=== PATIENT | female | born 1940 | race Caucasian/White ===

== ENCOUNTER 2018-05-10 12:12 | Emergency (ER) | payer OTHER ==
[~2018-05-10] VITALS: Ht 172.7 cm; Wt 99.8 kg
--- NOTE | 2018-05-10 12:57 | ED GENERAL ADULT ---
History of Present Illness General Chief Complaint: Abdominal Pain/Flank Pain Stated Complaint: FEVER/ABD PAIN Source: patient, family Exam Limitations: no limitations Vital Signs & Intake/Output Vital Signs & Intake/Output Vital Signs Date Time Temp Pulse Resp B/P B/P Pulse O2 O2 Flow FiO2 Mean Ox Delivery Rate 05/10 1653 97.0 82 18 173/81 99 Room Air Room Air 05/10 1321 97 Room Air Room Air 05/10 1238 97.2 74 20 146/76 97 Room Air Allergies Coded Allergies: Penicillins (UNKNOWN 05/10/18) Reconcile Medications Aspirin (Aspirin*) 81 MG TAB.CHEW 1 TAB PO DAILY HEART HEALTH (Reported) Cholecalciferol (Vitamin D3) (Vitamin D) 1,000 UNIT TABLET 1 TAB PO DAILY VITAMIN SUPPORT (Reported) Melatonin 10 MG TABLET 1 TAB PO QPM SLEEP (Reported) Metoprolol Tartrate 25 MG TABLET 1.5 TAB PO DAILY HEART (Reported) Multivitamin (Daily Multiple Vitamin) 1 EACH TABLET 1 TAB PO DAILY VITAMIN SUPPORT (Reported) Sigurd-3 Fatty Acids/Fish Oil (Fish Oil 1,000 MG Capsule) 340 MG-1,000 MG CAPSULE 1 CAP PO BID SUPPLEMENT (Reported) Rosuvastatin Calcium (Crestor) 20 MG TABLET 1 TAB PO DAILY CHOLESTEROL ( Reported) Ubidecarenone (Co Q-10) (Unknown Strength) CAPSULE (Unknown Dose) PO BID SUPPLEMENT (Reported) Triage Note: PT TO ED C/O ABD CRAMPING X A FEW MONTHS. STATES FEVER LAST NIGHT. C/O DIARRHEA AND CHILLS. DENIES N/V. Triage Nurses Notes Reviewed? yes HPI: Patient is a 77-year-old female with past medical history as outlined below, with no past surgical history other than a bladder sling performed transvaginally, who presents today with 2 months of worsening diarrhea and abdominal cramping. Became acutely worse in the last several days causing her to be unable to wait for a PCP visit. Upon my initial encounter the patient is generally well-appearing and in no acute distress when at rest and stationary, but she states that during the drive in, speed bumps very painful and even standing causes her distress. Past History Travel History Traveled to [place] past 21 day No Medical History Any Pertinent Medical History? see below for history Cardiovascular: myocardial infarction Surgical History Surgical History: non-contributory Psychosocial History What is your primary language Upper Sorbian Tobacco Use: Quit >30 days ago ETOH Use: denies use Illicit Drug Use: denies illicit drug use Family History Hx Contributory? No Review of Systems Review of Systems Constitutional: Reports: see HPI. EENTM: Reports: no symptoms. Respiratory: Reports: no symptoms. Cardiovascular: Reports: no symptoms. GI: Reports: see HPI, abdominal pain, bloating, diarrhea, distention, bloody stool, changes in stool. Denies: constipation, bowel incontinence, nausea, vomiting. Genitourinary: Denies: discharge, dysuria, frequency, hematuria, hesitation. Musculoskeletal: Reports: no symptoms. Skin: Reports: no symptoms. Neurological/Psychological: Reports: no symptoms. Hematologic/Endocrine: Reports: no symptoms. Immunologic/Allergic: Reports: no symptoms. All Other Systems: Reviewed and Negative Physical Exam Physical Exam General Appearance: well developed/nourished, no apparent distress, alert, awake , comfortable Comments: HEENT: Inspection of the head reveals a normocephalic cranium with no signs of trauma. Ophtho: Extraocular muscles are intact and pupils are equal and reactive to light bilaterally with no afferent pupillary defect. The sclera are noninjected , and there is no obvious discharge. Neck: The trachea is midline, there is no obvious asymmetry or mass over the thyroid, and there is no midline cervical spine tenderness Respiratory: The lungs are clear and equal to auscultation bilaterally without wheezes, rales, or rhonchi. The patient exhibits no signs of labored breathing. Cardiac: Regular rhythm and non-tachycardic without appreciable murmurs on auscultation. No obvious JVD. GI: Examination of the abdomen reveals generalized abdominal discomfort without specific focality, worse in the bilateral lower quadrants and epigastrium and in the upper quadrants There is negative Oliver's sign, negative McBurney's point tenderness, negative Mychal sign, negative Mobley-Humphries sign, and no signs of peritonitis whatsoever on percussion or deep palpation. The skin is intact with no sign of trauma or infection. : Deferred Neuro: The patient is oriented to person, place, time, and situation, with no obvious focal motor deficits. There were no sensory deficits, and the patient exhibit purposeful movement of all 4 extremities. Cranial nerves II through XII are intact, and gait is normal. Behavioral: Calm and cooperative Dermatologic: Dermatologic examination reveals no diffuse rashes or exanthems, no petechiae, no ecchymoses, and no other signs of erythema or infection. Core Measures ACS in differential dx? No CVA/TIA Diagnosis: No Sepsis Present: No Sepsis Focused Exam Completed? No Progress Differential Diagnoses I considered the following diagnoses in my evaluation of the patient: Inflammatory bowel disease, ulcerative colitis, peritonitis, appendicitis, ischemic colitis, among multiple other possibilities Plan of Care: Orders Procedure Date/time Status URINALYSIS 05/10 1252 Complete LIPASE 05/10 1252 Complete COMPREHENSIVE METABOLIC PANEL 05/10 1252 Complete CBC WITHOUT DIFFERENTIAL 05/10 125 Complete Laboratory Tests 05/10/18 1415: CBC w Diff NO MAN DIFF REQ, RBC 4.10 L, MCV 89.9, MCH 30.0, MCHC 33.3, RDW 13.6 , MPV 8.3, Gran % 74.5, Lymphocytes % 18.0 L, Monocytes % 5.1, Eosinophils % 1.5, Basophils % 0.9, Absolute Granulocytes 5.6, Absolute Lymphocytes 1.4, Absolute Monocytes 0.4, Absolute Eosinophils 0.1, Absolute Basophils 0.1 05/10/18 1300: Urinalysis LIGHT H, Urine Color YEL, Urine Clarity CLEAR, Urine pH 6.0, Ur Specific [place] 1.015, Urine Protein NEG, Urine Ketones NEG, Urine Nitrite NEG, Urine Bilirubin NEG, Urine Urobilinogen 0.2, Ur Leukocyte Esterase TRACE H, Ur Microscopic SEDIMENT EXAMINED, Urine RBC RARE, Urine WBC RARE, Ur Epithelial Cells OCCAS, Urine Bacteria RARE H, Urine Hemoglobin TRACE-INTACT, Urine Glucose NEG 05/10/18 1215: Anion Gap 9, Estimated GFR > 60, BUN/Creatinine Ratio 20.0, Glucose 96, Calcium 9.1, Total Bilirubin 0.6, AST 18, ALT 27, Alkaline Phosphatase 66, Total Protein 6.5, Albumin 3.8, Globulin 2.7, Albumin/Globulin Ratio 1.4, Lipase 65 Initial ED EKG: none Comments: Patient presents with abdominal pain, no recent colonoscopies. Recently had a negative ColoGuard, but has noticed some dark stools and even some bloody stools over recent months. CT scan showed diverticulitis which was uncomplicated as documented below. This correlates and makes sense with her symptoms, so I feel it is reasonable for her to be treated with ciprofloxacin and metronidazole and discharged with plans to follow-up with her PCP and regulatory administrator. She will return to the emergency department for any development of fever, nausea, vomiting, or other worsening in her condition. PATIENT: PATRICE KUNZ PRESENT AGE: 77 PATIENT ACCOUNT NO: [id number] : 42 LOCATION: [facility] ORDERING PHYSICIAN: Martin Kunz DO SERVICE DATE: 05/10/18 EXAM TYPE: CAT - CT ABD & PELVIS W IV CONTRAST EXAMINATION: CT ABDOMEN AND PELVIS WITH CONTRAST CLINICAL INFORMATION: Inflammatory bowel disease versus other pathology with abdominal pain and diarrhea. COMPARISON: None TECHNIQUE: Multidetector volumetric imaging was performed of the abdomen and pelvis following IV administration of 95 mL of Optiray 320 intravenous contrast. Sagittal and coronal reformatted images were obtained on the technologist's workstation. DLP: 929.71 mGy-cm FINDINGS: LUNG BASES: The visualized lung bases are unremarkable. LIVER, GALLBLADDER, AND BILIARY TREE: The liver is normal in size, shape, and attenuation. No focal hepatic lesion or biliary ductal dilatation is present. The gallbladder is unremarkable with no evidence of radiopaque gallstones, gallbladder wall thickening, or obvious pericholecystic inflammatory changes. PANCREAS: Unremarkable. SPLEEN: Unremarkable. ADRENAL GLANDS: Unremarkable. KIDNEYS AND URETERS: The kidneys are normal in size, shape, and attenuation. No hydronephrosis, hydroureter, or calculi seen. No perinephric stranding. BLADDER: Unremarkable. GASTROINTESTINAL TRACT: In the distal sigmoid there is an abnormal phlegmonous area consistent with diverticulitis. Inflammatory changes extend out into the perisigmoid fat no free air or associated fluid collection is seen. Scattered diverticula are seen elsewhere. The small bowel is unremarkable. The appendix appears normal. ABDOMINAL WALL: No significant hernia is appreciated. A tiny left direct inguinal hernia seen containing only fat. Small periumbilical hernia seen containing only fat. LYMPH NODES: Normal. VASCULAR: Unremarkable. PELVIC VISCERA: Patient appears to be status post hysterectomy and bilateral salpingo-oophorectomy. OSSEOUS STRUCTURES: Marked degenerative changes present throughout the lumbosacral spine. No bony destructive lesions are seen. IMPRESSION: Acute uncomplicated sigmoid diverticulitis. No associated fluid collections are seen that would require drainage. DICTATED BY: Blaine Tariq MD DATE/TIME DICTATED:05/10/181514 LINE SERVICER:GUSTAVO DATE/TIME TRANSCRIBED:05/10/181514 CONFIDENTIAL, DO NOT COPY WITHOUT APPROPRIATE AUTHORIZATION. <Electronically signed in Other Vendor System> SIGNED BY: Blaine Tariq MD 05/10/18 1611 Departure Departure Time of Disposition: 1653 Disposition: HOME OR SELF CARE Condition: Stable Clinical Impression Primary Impression: Diverticulitis large intestine Qualifiers: Diverticulitis bleeding: unspecified bleeding status Diverticulitis complication: without perforation or abscess Qualified Code: K57.32 - Diverticulitis of large intestine without perforation or abscess without bleeding Referrals: Beverly MCGOWAN,Dev Jones (PCP/Family) Additional Instructions: Please take the antibiotics we prescribed and follow up with your primary physician for reassessment, and with our regulatory administrator at [phone]. Return to the emergency department for any worsening abdominal pain, fever, or other concerns. Departure Forms: Customer Survey General Discharge Information Prescriptions: Current Visit Scripts Ciprofloxacin HCl (Cipro) 1 TAB PO BID #30 TAB Metronidazole (Flagyl) 1 TAB PO Q8 #40 TAB Critical Care Note Critical Care Note Critical Care Time: non-applicable
[2018-05-10] MEDS ORDERED: FISH OIL 1,0001 EACH PO (14:16)
[2018-05-10] MEDS ORDERED: ASPIRIN81 M4 PO (14:17)
[2018-05-10] MEDS ORDERED: METOPROLOL TART25 M1 PO (14:17)
[2018-05-10] MEDS ORDERED: DAILY MULTIPLE1 EACH PO (14:17)
[2018-05-10] MEDS ORDERED: VITAMIN D1000 UNIT PO (14:17)
[2018-05-10] MEDS ORDERED: MELATONIN10 M2 PO (14:18)
[2018-05-10] MEDS ORDERED: CO Q-10100 MG PO (14:18)
[2018-05-10] MEDS ORDERED: CRESTOR20 M2 PO (14:19)
[2018-05-10 14:30] LABS: ABSOLUTE BASOPHIL COUNT 0.1 /CUMM (0.0-0.2); ABSOLUTE EOSINOPHIL COUNT 0.1 /CUMM (0.0-0.7); ABSOLUTE GRANULOCYTE CT 5.6 /CUMM (1.4-6.5); ABSOLUTE LYMPH COUNT 1.4 /CUMM (1.2-3.4); ABSOLUTE MONOCYTE COUNT 0.4 /CUMM (0.10-0.60); BASOPHIL % 0.9 % (0.0-2.0); EOSINOPHIL % 1.5 % (0-5); GRANULOCYTE % 74.5 % (42.2-75.2); HEMATOCRIT 36.9 % (37-47); MEAN CORPUSCULAR HGB CONC 33.3 G/DL (33.0-37.0); MEAN CORPUSCULAR VOLUME 89.9 FL (81.0-99.0); MEAN PLATELET VOLUME 8.3 FL (7.4-10.4); PLATELET COUNT 164 /CUMM (130-400); RBC DISTRIBUTION WIDTH 13.6 % (11.5-14.5); WHITE BLOOD CELL COUNT 7.6 /CUMM (4.8-10.8)
--- NOTE | 2018-05-10 16:11 | CT SCAN REPORT ---
EXAMINATION: CT ABDOMEN AND PELVIS WITH CONTRAST CLINICAL INFORMATION: Inflammatory bowel disease versus other pathology with abdominal pain and diarrhea. COMPARISON: None TECHNIQUE: Multidetector volumetric imaging was performed of the abdomen and pelvis following IV administration of 95 mL of Optiray 320 intravenous contrast. Sagittal and coronal reformatted images were obtained on the technologist's workstation. DLP: 929.71 mGy-cm FINDINGS: LUNG BASES: The visualized lung bases are unremarkable. LIVER, GALLBLADDER, AND BILIARY TREE: The liver is normal in size, shape, and attenuation. No focal hepatic lesion or biliary ductal dilatation is present. The gallbladder is unremarkable with no evidence of radiopaque gallstones, gallbladder wall thickening, or obvious pericholecystic inflammatory changes. PANCREAS: Unremarkable. SPLEEN: Unremarkable. ADRENAL GLANDS: Unremarkable. KIDNEYS AND URETERS: The kidneys are normal in size, shape, and attenuation. No hydronephrosis, hydroureter, or calculi seen. No perinephric stranding. BLADDER: Unremarkable. GASTROINTESTINAL TRACT: In the distal sigmoid there is an abnormal phlegmonous area consistent with diverticulitis. Inflammatory changes extend out into the perisigmoid fat no free air or associated fluid collection is seen. Scattered diverticula are seen elsewhere. The small bowel is unremarkable. The appendix appears normal. ABDOMINAL WALL: No significant hernia is appreciated. A tiny left direct inguinal hernia seen containing only fat. Small periumbilical hernia seen containing only fat. LYMPH NODES: Normal. VASCULAR: Unremarkable. PELVIC VISCERA: Patient appears to be status post hysterectomy and bilateral salpingo-oophorectomy. OSSEOUS STRUCTURES: Marked degenerative changes present throughout the lumbosacral spine. No bony destructive lesions are seen. IMPRESSION: Acute uncomplicated sigmoid diverticulitis. No associated fluid collections are seen that would require drainage.
[2018-05-10 16:53] VITALS: BP 173/81
[2018-05-10] MEDS ORDERED: CIPRO500 M1 PO (17:39)
[2018-05-10] MEDS ORDERED: FLAGYL500 MG PO (17:39)
== END 2018-05-10 17:45 ==
LOC: ERH 12:12
PROVIDERS: Student in an Organized Health Care Education/Training Program
DX: K57.32 Diverticulitis of large intestine without perforation or abscess without bleeding (principal); R19.7 Diarrhea, unspecified; R10.9 Unspecified abdominal pain
CPT/HCPCS: 74177; 81001; Q9965